=== PATIENT | female | born 1970 | race Asian ===

== ENCOUNTER 2020-11-16 07:46 | Day surgery (SDC) | payer BC ==
[~2020-11-16] VITALS: Ht 149.9 cm; Wt 49.4 kg
[~2020-11-16 07:46] MED LIST: ASCO500C PO; BENZ-8 PO; FERR325T72 PO; HYDROmorphone 2 MG/ML VIAL IVP PRN; IV RINGERS,LACTATED 1000ML 1,000 ML IV SCH; MEDR5TAB PO; MORPHINE SULFATE 2 MG/ML VIAL. IVP PRN; PROCHLORPERAZINE 10 MG/2 ML VIAL. IVP PRN; ceFAZolin SODIUM IV Push 1 GM VIAL. IVP PRN; fentaNYL PF VIAL 100 MCG/2 ML VIAL IVP PRN
[2020-11-16 08:19] VITALS: BP 109/64
[2020-11-16] MEDS ORDERED: fentaNYL PF VIAL 100 MCG/2 ML VIAL ONE ×2 (08:33→11:35)
[2020-11-16] MEDS ORDERED: LIDOCAINE 2% PF 5 ML VIAL. ONE (08:33)
[2020-11-16] MEDS ORDERED: PROPOFOL 10 MG/ML (20ML) VIAL. IV ONE (08:33)
[2020-11-16 08:44] LABS: BASO % 1 % (0-3); EOS # 0.1 x10^3/uL (0.0-0.7); EOS % 2 % (0-3); HEMOGLOBIN 12.3 g/dL (12.0-15.5); LYMPH % 20 % (24-48); MEAN CORPUSCULAR HEMOGLOBIN 25 pg (25-35); MEAN CORPUSCULAR HGB CONC 33 g/dL (31-37); MEAN CORPUSCULAR VOLUME 76 fL (79-100); MONO # 0.3 x10^3/uL (0.0-1.1); MONO % 6 % (0-9); NEUT # 3.5 x10^3/uL (1.8-7.7); NEUT % 72 % (31-73); PLATELET COUNT 249 x10^3/uL (140-400); RED BLOOD COUNT 4.86 x10^6/uL (3.50-5.40); RED CELL DISTRIBUTION WIDTH 29.5 % (11.5-14.5); WHITE BLOOD COUNT 4.9 x10^3/uL (4.0-11.0)
[2020-11-16 09:08] LABS: BILIRUBIN,URINE NEGATIVE (NEG); CLARITY,URINE CLOUDY; COLOR,URINE YELLOW
[2020-11-16 09:09] LABS: NITRITE,URINE NEGATIVE (NEG); PH,URINE 5.5 (<5.0-8.0); PROTEIN,URINE 30 mg/dL (NEG-TRACE); UROBILINOGEN,URINE 0.2 mg/dL (0.2 mg/dL)
[2020-11-16 09:18] LABS: BACTERIA,URINE 0 /HPF (0-FEW); WBC,URINE TNTC /HPF (0-4)
[2020-11-16] MEDS ORDERED: DEXAMETHASONE SOD PHOS 4 MG/ML VIAL ONE (10:07)
[2020-11-16] MEDS ORDERED: KETOROLAC 30 MG/ML VIAL. ONE (10:07)
[2020-11-16] MEDS ORDERED: ONDANSETRON PF 4 MG/2 ML VIAL. ONE (10:07)
[2020-11-16 10:25] LABS: PLT ESTIMATE ADEQUATE (ADEQUATE)
[2020-11-16 10:26] LABS: ANISOCYTOSIS MARKED
[2020-11-16] MEDS ORDERED: SEVOFLURANE 31 TO 60 MINUTES. IH ONE (10:37)
--- NOTE | 2020-11-16 10:47 | PDOC ---
BRIEF OPERATIVE NOTE Date: Nov 16, 2020 Pre-Op Diagnosis Menorrhagia Post-Op Diagnosis Same Procedure Performed Endometrial Ablation Surgeon Dr. Lerner Anesthesia Type: General Blood Loss 10 ml Specimens Obtained none Findings nml size uterus Complications none Operative Note see dictation MARGARETTE LERNER Jr, MD Nov 16, 2020 10:47
--- NOTE | 2020-11-16 10:49 | DISCH ---
DISCHARGE INSTRUCTIONS Condition on Discharge Condition on Discharge: Stable Activity After Discharge Activity Instructions for Disc: Activity as tolerated Lifting Instructions after Dis: No heavy lifting Driving Instructions after Dis: Do not drive today Diet after Discharge Diet after Discharge: Regular Contacting the DRLea after DC Call your doctor for: Concerns you may have Follow-Up Follow up with: Dr. Lerner in 1 week MARGARETTE LERNER Jr, MD Nov 16, 2020 10:49
[2020-11-16] MEDS ORDERED: OXYC-325 PO (11:10)
[2020-11-16 11:17] VITALS: BP 135/79
--- NOTE | 2020-11-16 11:40 | OP ---
DATE OF SURGERY: 11/16/2020 PREOPERATIVE DIAGNOSIS: Menorrhagia. POSTOPERATIVE DIAGNOSIS: Menorrhagia. PROCEDURE: Endometrial ablation with NovaSure device. SURGEON: Montez Thomson MD. ANESTHESIA: LMA. ESTIMATED BLOOD LOSS: 10 mL. COMPLICATIONS: None. FINDINGS: Normal size uterus. SUMMARY: A 50-year-old with heavy menstrual cycles for the last few years, unresponsive to medical treatment. Endometrial biopsy was negative. The patient required endometrial ablation. She was counseled on the risks, benefits and expectations and voiced clear understanding to proceed. DESCRIPTION OF PROCEDURE: The patient was taken to the surgery suite and placed in the dorsal lithotomy position, was prepped with Betadine solution and draped in a sterile fashion. After adequate anesthesia, weighted speculum and curved Naylor were placed vaginally. Anterior lip of the cervix grasped with single tooth tenaculum. Uterus was sounded to 8 cm in length. The NovaSure device was set to 6 cm length and 4 cm width. The device went through a full cycle for 45 seconds ablating the uterine lining. The NovaSure device was removed. The single tooth tenaculum and weighted speculum were removed. The patient tolerated the procedure well and was taken to recovery room in stable condition. Sponge and instrument count correct x 3. MARISSA/RAHEL DR: MARISSA/bhavesh TID: [id number]
== END 2020-11-16 11:51 | disposition home or self-care (01) ==
LOC: SURG 07:46
PROVIDERS: ATTEND Obstetrics & Gynecology
DX: N92.0 Excessive and frequent menstruation with regular cycle (principal)
CPT/HCPCS: 36415; 58353; 81001; 81025; 85025; 86850; 86900; 86901; 87086; A4930; J0690; J1100; J1885; J2405; J2704; J3010